=== PATIENT | female | born 1975 | race Caucasian/White ===

== ENCOUNTER 2017-04-07 14:15 | Emergency (ER) | payer MEDICAID ==
[~2017-04-07] VITALS: Ht 157.5 cm; Wt 67.9 kg
[2017-04-07 14:24] VITALS: BP 112/73
[2017-04-07] MEDS ORDERED: DEXAMETHASONE 4 MG TABLET ONE (14:56)
[2017-04-07] MEDS ORDERED: DEXAMETHASONE 4 MG TABLET PO ONE (15:00)
== END 2017-04-07 15:13 | disposition home or self-care (01) ==
LOC: ED 14:37
DX: B34.9 Viral infection, unspecified (principal); Z88.6 Allergy status to analgesic agent
CPT/HCPCS: 99283

== ENCOUNTER 2018-03-30 06:56 | Emergency (ER) | payer MEDICAID ==
[~2018-03-30] VITALS: Ht 157.5 cm; Wt 64.0 kg
--- NOTE | 2018-03-30 07:20 | NUR ---
assumed care of pt. pt here c/o RODRIGES for 2-3 days. pt states that she took excederin last nocs before going to bed without much relief. pt reports feeling sensitive to light and sound. denies any hallucinations or visual disturbances. no family at bedside. lights dimmed for comfort. c/o nause but no vomiting. pt resting in position of comfort. pt reports thta she is allergic to ibuprofen. when asked if she has ever had toradol or has any allergies to toradol, pt states no.
--- NOTE | 2018-03-30 07:26 | NUR ---
SHARON Cummins aware that pt has allerg to ibuprofen and denies allergy to toradol, OK to give Toradol per PA
[2018-03-30] MEDS ORDERED: DIPHENHYDRAMINE 50 MG/ML, 1ML ONE (07:28)
[2018-03-30] MEDS ORDERED: METOCLOPRAMIDE 5 MG/ML, 2ML ONE (07:28)
[2018-03-30] MEDS ORDERED: KETOROLAC 30 MG/1 ML ONE (07:28)
[2018-03-30] MEDS ORDERED: METOCLOPRAMIDE 5 MG/ML, 2ML IVPush ONE (07:30)
[2018-03-30] MEDS ORDERED: SODIUM CHLORIDE FLUSH 10ML SYR IVF ONE (07:30)
[2018-03-30] MEDS ORDERED: KETOROLAC 30 MG/1 ML IVPush ONE (07:30)
[2018-03-30] MEDS ORDERED: DIPHENHYDRAMINE 50 MG/ML, 1ML IVPush ONE (07:30)
--- NOTE | 2018-03-30 07:58 | NUR ---
pt has been medicated per order. warm blankets given oer request. pt advised not to drive after IV benadryl. pt verbalized understanding
--- NOTE | 2018-03-30 08:07 | NUR ---
pt resting calmly. reports pain decrease from 10/10 to 5/10 and is now much calmer. positioning for comfort.
[2018-03-30] MEDS ORDERED: DEXAMETHASONE 4 MG/ML, 5ML ONE (08:43)
[2018-03-30] MEDS ORDERED: DEXAMETHASONE 4 MG/ML, 1ML IVPush ONE (09:00)
[2018-03-30 09:22] VITALS: BP 116/72
== END 2018-03-30 09:26 | disposition home or self-care (01) ==
LOC: ED 08:20
DX: G43.009 Migraine without aura, not intractable, without status migrainosus (principal)
CPT/HCPCS: 96374; 96375; 99283; J1100; J1200; J1885; J2765